=== PATIENT | female | born 1990 | race Caucasian/White ===

== ENCOUNTER 2016-06-28 03:07 | Outpatient (CLI) ==
[2016-06-28 03:48] VITALS: BMI 21.2
== END 2016-06-28 03:08 ==
LOC: AMBL 03:07
PROVIDERS: ATTEND Internal Medicine Geriatric Medicine
DX: F41.0 Panic disorder [episodic paroxysmal anxiety] (principal); R06.4 Hyperventilation

== ENCOUNTER 2016-06-28 03:22 | Emergency (ER) ==
[2016-06-28 03:48] VITALS: BP 109/71; TEMP 98.8; BMI 21.2
--- NOTE | 2016-06-28 04:13 | ED.PDOC ---
General ED Provider: Dr. LUZ ELENA JAEGER Chief Complaint: Psychiatric Complaint Stated Complaint: Khadijah states she has been dealing with her you new baby then forgot to take her lexapro, Had some beer to drink then started vomiting and then had a panic attack with chest tightness. Has been going through alot of stress at home. Thinks that the lexapro is no longer effective. Time Seen by Physician: 04:11 Information Source: Patient, EMT Exam Limitations: No limitations Nursing and Triage Documentation Reviewed and Agree: Yes Review of Systems - Review Of Systems Constitutional: Reports: No symptoms Eyes: Reports: No symptoms Ears, Nose, Mouth, Throat: Reports: No symptoms Respiratory: Reports: Short of air Cardiac: Reports: Chest pain GI: Reports: No symptoms : Reports: No symptoms Musculoskeletal: Reports: No symptoms Skin: Reports: No symptoms Neurological: Reports: Anxiety, Depressed, Emotional problems, Other (insomina ) Endocrine: Reports: No symptoms Hematologic/Lymphatic: Reports: No symptoms All Other Systems: Reviewed and Negative Past Medical History - Past Medical History Endocrine: Reports: None Cardiovascular: Reports: Hypertension Respiratory: Reports: None Hematological: Reports: Anemia Gastrointestinal: Reports: None Genitourinary: Reports: None Neuro/Psych: Reports: Migraine, Anxiety (Peripartum depression ), Depression Musculoskeletal: Reports: None Cancer: Reports: None Last Menstrual Period: JUNE 07, 2016 Other Pertinent Past Medical History: Hematurea - Surgical History General Surgical History: Reports: Other (LEFT FALLOPIAN TUBE REMOVED DUE TO TUBAL 2013, D&C, HAS RIGHT FALLOPIAN TUBE OCCLUSION) - Family History Family History: Reports: Unknown - Social History Smoking Status: Current some day smoker Hx Substance Use: No Alcohol Screening: Occasionally - Immunizations Tetanus Shot up to Date: (UNKNOWN) Physical Exam - Physical Exam Appearance: Ill-appearing Eyes: AARON, EOMI, Conjunctiva clear ENT: Ears normal, Nose normal, Oropharynx normal Neck: Supple Respiratory: Airway patent, Breath sounds clear, Breath sounds equal, Respirations nonlabored Cardiovascular: RRR, Pulses normal, No rub, No murmur GI/: Soft, Nontender, No masses, Bowel sounds normal, No Organomegaly Musculoskeletal: Normal strength, ROM intact, No edema, No calf tenderness Skin: Warm, Dry, Normal color Neurological: Sensation intact, Motor intact, Reflexes intact, Cranial nerves intact, Alert, Oriented Psychiatric: Anxious, Depressed Critical Care Note - Critical Care Note Total Time (mins): 0 Course - Course Orders, Labs, Meds: Orders Category Date Time Status Lorazepam [Ativan] MEDS 06/28/16 04:47 Discontinued 0.5 mg PO ONCE STA Medications Discontinued Medications Generic Name Dose Route Start Last Admin Trade Name Freq PRN Reason Stop Dose Admin Lorazepam 0.5 mg 06/28/16 04:47 Ativan PO 06/28/16 04:48 ONCE STA Vital Signs: Temp Pulse Resp BP Pulse Ox 06/28/16 03:23 98.8 F 79 24 109/71 98 Departure - Departure Time of Disposition: 04:55 Disposition: HOME SELF-CARE Discharge Problem: Panic anxiety syndrome Instructions: Anxiety (ED), Depression (ED) Condition: Fair Pt referred to PMD for follow-up: Yes (PCP/OBGYN ) Additional Instructions: Resume your dose of Lexapro Follow up with you PCP or OBGYN for medication review and Referral to a counsellor Decrease amount of Alcohol to less than 2 drinks per week. Prescriptions: Lorazepam [Ativan] 0.5 mg PO BID PRN #10 tablet PRN Reason: Anxiety Allergies/Adverse Reactions: Allergies No Known Allergies Allergy (Verified 06/28/16 03:51) Home Medications: Ambulatory Orders Ibuprofen 800 mg PO BID PRN 09/06/15 Lorazepam [Ativan] 0.5 mg PO BID PRN #10 tablet 06/28/16 Disposition Discussed With: Patient, Family
[2016-06-28] MEDS ORDERED: ATIVAN PO STA (04:47)
== END 2016-06-28 05:15 | disposition home or self-care (01) ==
LOC: EDSEX → ED 03:22
DX: F41.0 Panic disorder [episodic paroxysmal anxiety] (principal); F17.210 Nicotine dependence, cigarettes, uncomplicated
CPT/HCPCS: 99283